=== PATIENT | female | born 1955 | race Caucasian/White ===

== ENCOUNTER → 2023-06-10 07:34 | Outpatient (REF) | payer MEDICARE, SELFPAY | LOC: EMG 07:34 | PROVIDERS: ATTENDING PHYSICIAN Orthopaedic Surgery Hand Surgery; FAMILY PHYSICIAN Family Medicine | DX: R20.0 Anesthesia of skin (principal) | CPT/HCPCS: 95886; 95911 ==

== ENCOUNTER → 2023-09-10 08:00 | Day surgery (SDC) | payer MEDICARE, SELFPAY ==
--- NOTE | 2023-08-11 09:42 | CM ---
Patient is scheduled for cervical spine surgery on 09/10/23. Spoke with patient prior to surgery via telephone. Introduced role of the Orthopedic Navigator. Patient reports that she lives with her in a multi story home. There are no steps to
enter and approximately 20 steps to the second floor where her living room, bedroom and full bath. She currently functions independently and describes herself as very active. She has no DME and has never had VN services. PCP is Timothy Varner.
Discussed orthopedic program, post surgical plans and tentative plan for patient to return home when directed by surgeon. Patient is in agreement with tentative plan and will have support from her when she goes home.
Plan: Orthopedic Navigator will remain available to assist with the care of patient and will reassess discharge needs after surgery.
[2023-08-19 07:52] VITALS: BMI 27.1
[2023-08-19 09:03] LABS: Hematocrit 43.2 % (37.0-47.0); Hemoglobin 14.1 g/dL (12.0-16.0); Mean Corp Hgb Conc. 32.6 g/dL (33.0-37.0); Mean Corpuscular Hgb 28.8 pg (27.0-31.0); Mean Corpuscular Volume 88.2 fL (81.0-99.0); Mean Platelet Volume 9.4 fL (7.4-10.4); Platelet Count 315 10^3/uL (130-400); Red Cell Dist. Width 13.5 % (11.5-14.5); White Blood Cell Count 5.7 10^3/uL (4.8-10.8)
[2023-08-19 09:21] LABS: ALT (SGPT) 30 U/L (0-35); AST (SGOT) 32 U/L (14-36); Albumin 4.1 g/dl (3.5-5.0); Alkaline Phosphatase 59 U/L (38-126); Blood Urea Nitrogen 14 mg/dl (7-17); Calcium 9.3 mg/dl (8.4-10.2); Carbon Dioxide 27 mmol/L (22-30); Chloride 100 mmol/L (98-107); Estimated Creatinine Clearance 73 ml/min; Glucose 94 mg/dl (70-99); Potassium 4.3 mmol/L (3.5-5.1); Sodium 134 mmol/L (135-145); Total Bilirubin 0.5 mg/dl (0.2-1.3); Total Protein 7.5 g/dl (6.3-8.2); eGFR > 60.00
--- NOTE | 2023-08-19 11:51 | HPS.HSE ---
Family Physician
-
Family Physician: Timothy Varner
Chief Complaint
-
Cervical stenosis.
History of Present Illness
The patient is a 68 year old female presenting today for cervical stenosis. The patient reports a neck pain which radiates into both arms secondary to this diagnosis. She notes that her arm pain is worse on her right side in comparison to
her left side. She notes that he current pain is greatly interfering with her activities of daily living and is overall impacting her quality of life. She has tried and failed multiple conservative treatment measures in the past for her pain. These
conservative treatment measures include activity modification, self therapeutic exercises, medical management with Tylenol and NSAIDs, and the application of ice and/or heat. Recent MRI findings of the cervical spine demonstrated severe stenosis
between C5-C6 and C6-C7. She was determined to be in need of a C5-C6, C6-C7 anterior cervical discectomy and fusion. She denies any current complaints today such as chest pain, shortness of breath, palpitations, nausea, vomiting, diarrhea,
lightheadedness, dizziness, cough, sore throat, or fever.
Medical History
Past Medical History
Past Medical History: Reports Other
Additional Past Medical History:
1. Cervical stenosis.
2. Lumbar degenerative disc disease.
3. Hyperlipidemia.
4. Sinus bradycardia, asymptomatic.
5. Chronic esophagitis.
6. Small hiatal hernia.
7. Remote GI ulcers with bleed.
8. Colon polyps.
9. Vertigo.
10. Peripheral neuropathy.
11. Left breast cancer, 1998 with recurrence in 2020, status post left lumpectomy, left axillary lymph node dissection x2, radiation, and previous hormonal therapy.
12. Sjogren's syndrome.
13. Eczema.
14. Psoriasis.
15. Vitamin B12 deficiency.
16. Vitamin D deficiency.
17. Mild hyponatremia.
Past Surgical History: Reports Other
Additional Past Surgical History:
1. Remote lumbar discectomy x2 with Dr. Telly Stephens.
2. Left knee partial medial meniscectomy.
3. Left lumpectomy and axillary lymph node dissection.
4. Repeat left axillary lymph node dissection.
5. Oophorectomy.
6. Appendectomy.
7. Colonoscopy.
8. Endoscopy.
Social History
Tobacco: Non-smoker
Alcohol: Other (She, on average, drinks wine or beer 1-2 times a week. )
Personal:
Living: Other (She lives in a 3 story home with her . Her reportedly travels quite often for business. )
Family History
Family History: Not pertinent
Allergies / Home Medications
Allergy/Medication List:
Home medications:
1. Cholecalciferol 50 mcg p.o. daily.
2. Ibuprofen 400 mg p.o. at bedtime.
3. Mecobalamin 1000 mcg p.o. daily.
4. Ocuvite 1 capsule p.o. twice a day.
5. Red yeast rice 600 mg p.o. daily.
Allergies: No known allergies.
Review of Systems
-
A 12 point ROS was completed and negative except as noted: Yes
Physical Exam
Vital Signs
Blood pressure: 137/83. Heart rate 60. Respirations 18. Pulse ox 96%.
Height 5 feet, 7 inches. Weight 78.4 kg. BMI 27.1.
Physical Exam
General: Well Developed, Well Nourished and No Apparent Distress
HEENT: NormoCephalic, Moist mucous membranes, Atraumatic and PERRLA
Respiratory: Clear
Cardiac: Bradycardia (Sinus )
GI: Soft, Non Tender and Non Distended
Musculoskeletal: Other (She has a mildly ataxic gait. No difference noted when her eyes are closed. No focal neurological defects or pathologic defects noted. )
Skin: Warm and Dry
Neuro: AO x 3 and Nonfocal/grossly intact
Laboratory Results
-
08/19/23 07:42
08/19/23 07:42
Laboratory Results
Total Bilirubin 0.5 mg/dl (0.2-1.3) 08/19/23 07:42
AST 32 U/L (14-36) 08/19/23 07:42
ALT 30 U/L (0-35) 08/19/23 07:42
Alkaline Phosphatase 59 U/L (38-126) 08/19/23 07:42
Blood type A positive.
MRSA screen negative.
EKG 08/19/2023: Sinus bradycardia. The patient is asymptomatic and able to preform >4 METS.
Impression/Plan
-
CLEARANCES:
1. Primary medical, Dr. Ventura Fernandez, cleared.
Primary medical phone number: [phone].
2. Cardiology, Dr. Telly Lopez, cleared.
3. Dental waived.
IMPRESSION/PLAN:
1. Cervical stenosis - The patient is in need of a C5-C6, C6-C7 anterior cervical discectomy and fusion with Dr. Kristopher Cooper on 09/10/2023. The benefits and risks of the procedure have been explained to the patient. The patient understands these
risks and wishes to proceed.
2. DVT prophylaxis - Bilateral sequential compression devices and KARLA hose stockings. We will promote frequent and early ambulation as tolerated during admission.
3. Limb alert: No blood pressures should be taken nor IVs inserted into the patient's left upper extremity due to her history of left lumpectomy and recurrent left axillary lymph node dissection.
Patient's phone number: [phone].
Patient's contact (Nicholas Miller - Spouse): [phone].
[2023-08-19 15:54] VITALS: BMI 27.1
[2023-09-10] VITALS (14 sets, daily range): BP systolic 91–139; BP diastolic 49–95
[2023-09-10] MEDS: TYLENOL 1000 MG PO (07:59)
[2023-09-10] MEDS: CELEBREX 200 MG PO (07:59)
[2023-09-10] MEDS: NORMOSOL-R 1000 IV (07:59)
[2023-09-10] MEDS: SKELAXIN 800 MG PO (07:59)
[2023-09-10] MEDS: LYRICA 150 MG PO (07:59)
[2023-09-10] MEDS: DILAUDID 0.25 MG IV ×2 (11:09→11:38)
--- NOTE | 2023-09-10 11:40 | SUR.PHASEI ---
patient received from surgery - sedate, does not arouse to voice or tactile stimuli, at 1105 patient throws self forward on stretcher, with eyes closed - cautioned on fast and uncontrolled movement. encouraged patient to open eyes and speak and can
be assisted with repositioning. Patient whispers that pain is 9/10, cannot keep eyes open, follows repeated commands. Encouraged to deep breathe. Explain the need to balance pain meds for acceptable vitals and breathing. Medicated x2 with low
dose Dilaudid as patient remains very somulent - now at 1145 sats down needs encouragement to deep breath
== END | disposition home or self-care (01) ==
LOC: SDS 08:00
PROVIDERS: ATTENDING PHYSICIAN Orthopaedic Surgery Orthopaedic Surgery of the Spine; FAMILY PHYSICIAN Family Medicine
DX: M48.02 Spinal stenosis, cervical region (principal)
CPT/HCPCS: 22551; 22552; 22845; 22853; 36415; 72020; 80053; 85027; 86850; 86900; 86901; 87070; 93005; C1713